=== PATIENT | male | born 1935 | race Caucasian/White ===

== ENCOUNTER 2016-09-02 13:14 | Observation (INO) | payer MEDICARE ==
[~2016-09-02] VITALS: Ht 185.4 cm; Wt 95.3 kg
[2016-09-02 13:13] VITALS: O2SAT 98
[2016-09-02 13:15] VITALS: BP_SYST 123; BP_SYST 162; BP_DIAS 101; BP_DIAS 74; PULSE 108; PULSE 113; RESP 20; TEMP 98.8; O2SAT 97
[2016-09-02] MEDS ORDERED: SODIUM CHLOR 0.9% 1000 ML INJ 1,000 ML IV ONE (13:18)
[2016-09-02 13:27] VITALS: BP 163/114; PULSE 117; RESP 20; O2SAT 97
--- NOTE | 2016-09-02 13:30 | PD ---
HPI Chief Complaint: Stroke Alert Time Seen by Provider: 13:18 Travel History International Travel<30 days: No Contact w/Intl Traveler<30days: No Traveled to known affect area: No History of Present Illness HPI The patient is a 81-year-old male who presents to the emergency department via EMS as a stroke alert. According to EMS the patient was eating lunch at [employer] earlier today with his when he suddenly developed right facial droop and dysarthria. The onset of symptoms were exactly at 12:30 according to EMS. The patient was recently diagnosed with atrial fibrillation yesterday and changed from aspirin to Eliquis, according to EMS. They do not know how many doses of Eliquis the patient has taken. The patient does have a recent history of new onset atrial fibrillation with change in medications. The patient denies any weakness of the arms or legs, denies any numbness or tingling of the arms or legs. The patient denies any company chest pain, shortness breath, nausea, vomiting, or abdominal pain. The patient was called a stroke alert in the field. PFSH Past Medical History Narrative Medical Atrial fibrillation, CAD, hypertension, hyperlipidemia, borderline diabetes Past Surgical History Narrative Surgical Tonsillectomy, cardiac catheterization with stent placement Social History Tobacco Use: No Allergies-Medications (Allergen,Severity, Reaction): Coded Allergies: No Known Allergies (Unverified , 09/02/16) Reported Meds & Prescriptions Reported Meds & Active Scripts Active Reported Eliquis (Apixaban) 5 Mg Tab 5 Mg PO BID Review of Systems Except as stated in HPI: all other systems reviewed are Neg General / Constitutional: No: Fever Eyes: No: Visual changes HENT: No: Headaches, Lightheadedness Cardiovascular: Positive: Irregular Rhythm, Tachycardia, No: Chest Pain or Discomfort Respiratory: No: Shortness of Breath Gastrointestinal: No: Nausea, Vomiting, Abdominal Pain Musculoskeletal: No: Weakness Neurologic: Positive: Focal Abnormalities, Slurred Speech, No: Headache, Change in Mentation, Paresthesia, Sensory Disturbance Physical Exam Narrative GENERAL: Awake, alert, pleasant 81-year-old male appears his stated age and is in no acute respiratory distress. SKIN: Focused skin assessment warm/dry. HEAD: Atraumatic. Normocephalic. EYES: Pupils equal and round. 3 mm bilateral and reactive. EOMs are intact. Patient is able to see fingers at a distance of 2 feet without difficulty. Visual damian appear intact. ENT: No nasal bleeding or discharge. Mucous membranes pink and moist. NECK: Trachea midline. No JVD. CARDIOVASCULAR: Irregularly irregular, heart rate 103. RESPIRATORY: No accessory muscle use. Clear to auscultation. Breath sounds equal bilaterally. GASTROINTESTINAL: Abdomen soft, non-tender, nondistended. No rebound tenderness. MUSCULOSKELETAL: No obvious deformities. No clubbing. No cyanosis. No edema. NEUROLOGICAL: Awake and alert. Patient is oriented to person and year. Mild dysarthria. Mild right facial droop. EOMs are intact and tongue is midline. Patient is able to wrinkle forehead symmetrically bilateral. Finger to nose is normal. [id number] is normal. No drift of the upper or lower extremities. Sensation is symmetric bilaterally on the face, arms, and legs. Patient follows commands without difficulty. PSYCHIATRIC: Appropriate mood and affect; insight and judgment normal. Data Data Last Documented VS Vital Signs Date Time Temp Pulse Resp B/P Pulse Ox O2 Delivery O2 Flow Rate FiO2 09/02/16 13:40 114 20 186/91 92 Room Air 09/02/16 13:28 2 09/02/16 13:15 98.8 09/02/16 13:13 21 Orders Diet Npo (09/02/16 Lunch) Activity Bed Rest (09/02/16 ) Electrocardiogram (09/02/16 ) I-Stat Creatinine (09/02/16 13:18) I-Stat Profile (09/02/16 13:18) Prothrombin Time / Inr (Pt) (09/02/16 13:18) Act Partial Throm Time (Ptt) (09/02/16 13:18) Complete Blood Count With Diff (09/02/16 13:18) Fibrinogen (09/02/16 13:18) Creatine Kinase (Cpk) (09/02/16 13:18) Troponin I (09/02/16 13:18) Ua Includes Microscopic (09/02/16 13:18) Drug Screen, Random Urine (09/02/16 13:18) Type And Screen (09/02/16 13:18) Ct Brain W/O Iv Contrast(Rout) (09/02/16 ) Chest, Single Ap (09/02/16 ) Cta Brain W Iv Contrast W 3d (09/02/16 13:18) Cta Neck W Iv Contrast W 3d (09/02/16 13:18) Consult Neurology (09/02/16 ) Blood Glucose (09/02/16 13:18) Ecg Monitoring (09/02/16 13:18) Neuro Checks Q2HX12,Q4H (09/02/16 13:18) Nursing Bedside Swallow Assess .ONCE (09/02/16 13:18) Iv Access Insert/Monitor (09/02/16 13:18) NPO (09/02/16 13:18) Oximetry (09/02/16 13:18) Oxygen Administration (09/02/16 13:18) Sodium Chlor 0.9% 1000 Ml Inj (Ns 1000 M (09/02/16 13:18) Resp Oxygen Lance C Titrat 1-4 L (09/02/16 13:18) Cath For Specimen (09/02/16 13:18) (Hub Use Only)Inp Phy Cons/Ref (09/02/16 ) Westergren Sedimentation Rate (09/02/16 13:50) Rapid Plasma Regin (Rpr) W Ttr (09/02/16 13:50) Jessica Screen (09/02/16 13:50) Thyroid Stimulating Hormone (09/02/16 13:50) Free Thyroxine (T4) (09/02/16 13:50) Vitamin B1 (Thiamine) (09/02/16 13:50) Vitamin B12 (09/02/16 13:50) Urinalysis - C+S If Indicated (09/02/16 13:50) Methylmalonic Acid (Mma) (09/02/16 13:50) Ast (Sgot) (09/02/16 13:50) Alt (Sgpt) (09/02/16 13:50) Mri Brain W&W/O Contrast (09/02/16 13:50) Echo 2d Comp W/Dopp(Routine) (09/02/16 13:50) Inside Sales Associate / Telemetry KARLOS.Q8H (09/02/16 13:50) [place] (09/02/16 13:50) Sodium Chlor 0.9% 1000 Ml Inj (Ns 1000 M (09/02/16 13:50) Lipid Profile (09/02/16 13:50) ^ Other Nursing Orders (09/02/16 13:50) Scd&Teds Bilateral/Knee High KARLOS.QSHIFT (09/02/16 13:50) Aspirin Ec (Ecotrin Ec) (09/02/16 14:00) Apixaban (Eliquis) (09/02/16 21:00) Aspirin Ec (Ecotrin Ec) (09/02/16 14:00) Aspirin Ec (Ecotrin Ec) (09/03/16 07:00) Iodixanol 320 Inj (Rad Ct) (Visipaque 32 (09/02/16 14:01) ^ Other Nursing Orders (09/02/16 14:03) Labs Laboratory Tests Test 09/02/16 13:25 White Blood Count 9.4 TH/MM3 Red Blood Count 4.77 MIL/MM3 Hemoglobin 14.1 GM/DL Bedside Hemoglobin 12.9 G/DL Hematocrit 41.4 % Bedside Hematocrit 38.0 % Mean Corpuscular Volume 86.8 FL Mean Corpuscular Hemoglobin 29.6 PG Mean Corpuscular Hemoglobin 34.1 % Concent Red Cell Distribution Width 13.5 % Platelet Count 187 TH/MM3 Mean Platelet Volume 8.0 FL Neutrophils (%) (Auto) 55.0 % Lymphocytes (%) (Auto) 30.8 % Monocytes (%) (Auto) 10.5 % Eosinophils (%) (Auto) 3.2 % Basophils (%) (Auto) 0.5 % Neutrophils # (Auto) 5.2 TH/MM3 Lymphocytes # (Auto) 2.9 TH/MM3 Monocytes # (Auto) 1.0 TH/MM3 Eosinophils # (Auto) 0.3 TH/MM3 Basophils # (Auto) 0.0 TH/MM3 CBC Comment DIFF FINAL Differential Comment Prothrombin Time 11.4 SEC Prothromb Time International 1.0 RATIO Ratio Activated Partial 24.6 SEC Thromboplast Time Fibrinogen 368 mg/dL Bedside Sodium 142 MMOL/L Bedside Potassium 3.6 MMOL/L Bedside Chloride 108 MMOL/L Bedside Blood Urea Nitrogen 20 MG/DL Bedside Creatinine 0.9 MG/DL Bedside Glucose 95 MG/DL Total Creatine Kinase 108 U/L Troponin I LESS THAN 0.02 NG/ML MDM Medical Screen Exam Complete: Yes Emergency Medical Condition: Yes Medical Record Reviewed: Yes (no previous records) Differential Diagnosis Differential diagnosis includes CVA, TIA, transient neurologic deficit, atrial fibrillation with RVR, carotid dissection, intracranial hemorrhage, subarachnoid hemorrhage, hypoglycemia. Narrative Course IV was established, labs are drawn and sent, and the patient was placed on cardiac telemetry monitoring and continuous pulse oximetry monitoring. EKG was ordered and interpreted. Stroke scale was assessed at bedside, was 2. The patient went immediately to CT for CT the brain, CTA of the head and neck. I discussed the patient with the on-call neurologist, Dr. Thompson who requests that we speak with the in regards to how many doses of Eliquis the patient has taken. We called the cell phone number that was given to us by EMS, however , it was disconnected. The did arrive, states the patient took 1 dose of Eliquis yesterday and one dose this morning. The patient is not a candidate for TPA secondary to anticoagulation with novel oral anticoagulant. The patient will be admitted, will need echocardiogram and ultrasound of the carotids. The patient was evaluated by Dr. Thompson in the emergency department , the patient will receive aspirin orally. The patient will also be monitored of his atrial fibrillation, his rate has varied between 90 and 120, no acute medications were given as the patient's blood pressure was 177/101 and we did not want to drop history of a perfusion pressure. Stroke Alert NIHSS NIH Stroke Scale Result: 2 NIHSS Time Completed: 13:21 Thrombolytic Contraindications Contraindications Comment: Patient is currently on Eliquis Procedures Interpretation(s) EKG reveals atrial fibrillation with rapid ventricular response. Rate 113. Laboratory Tests Test 09/02/16 13:25 White Blood Count 9.4 TH/MM3 Red Blood Count 4.77 MIL/MM3 Hemoglobin 14.1 GM/DL Bedside Hemoglobin 12.9 G/DL Hematocrit 41.4 % Bedside Hematocrit 38.0 % Mean Corpuscular Volume 86.8 FL Mean Corpuscular Hemoglobin 29.6 PG Mean Corpuscular Hemoglobin 34.1 % Concent Red Cell Distribution Width 13.5 % Platelet Count 187 TH/MM3 Mean Platelet Volume 8.0 FL Neutrophils (%) (Auto) 55.0 % Lymphocytes (%) (Auto) 30.8 % Monocytes (%) (Auto) 10.5 % Eosinophils (%) (Auto) 3.2 % Basophils (%) (Auto) 0.5 % Neutrophils # (Auto) 5.2 TH/MM3 Lymphocytes # (Auto) 2.9 TH/MM3 Monocytes # (Auto) 1.0 TH/MM3 Eosinophils # (Auto) 0.3 TH/MM3 Basophils # (Auto) 0.0 TH/MM3 CBC Comment DIFF FINAL Differential Comment Prothrombin Time 11.4 SEC Prothromb Time International 1.0 RATIO Ratio Activated Partial 24.6 SEC Thromboplast Time Fibrinogen 368 mg/dL Bedside Sodium 142 MMOL/L Bedside Potassium 3.6 MMOL/L Bedside Chloride 108 MMOL/L Bedside Blood Urea Nitrogen 20 MG/DL Bedside Creatinine 0.9 MG/DL Bedside Glucose 95 MG/DL Total Creatine Kinase 108 U/L Troponin I LESS THAN 0.02 NG/ML Last Impressions Head CT 09/02/16 0000 Signed Impressions: Service Date/Time: Friday, September 02, 2016 13:26 - CONCLUSION: No acute disease. Tom Linares Jr., MD Physician Communication Physician Communication The on-call medical service was paged for admission. Diagnosis Diagnosis: Primary Impression: CVA (cerebral vascular accident) Qualified Code: I63.9 - Cerebrovascular accident (CVA), unspecified mechanism Additional Impressions: Dysarthria Atrial fibrillation with RVR Admitting Physician Requests: Admit Condition: Stable Jaime Bello MD September 02, 2016 13:30
[2016-09-02 13:35] LABS: I-STAT POTASSIUM 3.6 MMOL/L (3.5-4.9); I-STAT SODIUM 142 MMOL/L (138-146)
[2016-09-02 13:37] LABS: AUTOMATED NEUTROPHIL # 5.2 TH/MM3 (1.8-7.7); BASOPHIL % 0.5 % (0.0-2.0); EOSINOPHIL # 0.3 TH/MM3 (0-0.4); EOSINOPHIL % 3.2 % (0.0-4.0); HEMATOCRIT 41.4 % (39.0-51.0); HEMO FLAGS DIFF FINAL; LYMPH % 30.8 % (9.0-44.0); LYMPHOCYTE # 2.9 TH/MM3 (1.0-4.8); MEAN CELL VOLUME 86.8 FL (80.0-100.0); MEAN CORPUSCULAR HEMOGLOBIN 29.6 PG (27.0-34.0); MEAN CORPUSCULAR HGB CONC 34.1 % (32.0-36.0); MONO % 10.5 % (0.0-8.0); PLATELET COUNT 187 TH/MM3 (150-450); RED BLOOD COUNT 4.77 MIL/MM3 (4.50-5.90); RED CELL DISTRIBUTION WIDTH 13.5 % (11.6-17.2); WHITE BLOOD COUNT 9.4 TH/MM3 (4.0-11.0)
[2016-09-02 13:40] VITALS: BP 186/91; PULSE 114; RESP 20; O2SAT 92
[2016-09-02] MEDS ORDERED: APIX2.5T PO (13:40)
--- NOTE | 2016-09-02 13:40 | RADRPT ---
EXAM DATE/TIME: 09/02/2016 13:26 [facility] COMPARISON: No previous studies available for comparison. INDICATIONS : Slurred speech and right side facial droop. RADIATION DOSE: 56.35 CTDIvol (mGy) This report was called by Dr Linares to Olaf RIVERA at 1336 MEDICAL HISTORY : not optainable SURGICAL HISTORY : not optainable ENCOUNTER: Initial ACUITY: 1 day PAIN SCALE: 0/10 LOCATION: TECHNIQUE: Multiple contiguous axial images were obtained of the head. Using automated exposure control and adj ustment of the mA and/or kV according to patient size, radiation dose was kept as low as reasonably a chievable to obtain optimal diagnostic quality images. FINDINGS: CEREBRUM: The ventricles are normal for age. No evidence of midline shift, mass lesion, hemorrhage or acute in farction. No extra-axial fluid collections are seen. POSTERIOR FOSSA: The cerebellum and brainstem are intact. The 4th ventricle is midline. The cerebellopontine angle i s unremarkable. EXTRACRANIAL: The visualized portion of the orbits is intact. SKULL: The calvaria is intact. No evidence of skull fracture. CONCLUSION: No acute disease. Tom Linares Jr., MD on September 02, 2016 at 13:32 Board Certified Radiologist. This report was verified electronically.
[2016-09-02 13:46] LABS: APTT (PATIENT) 24.6 SEC (24.3-30.1); PROTHROMBIN TIME - PATIENT 11.4 SEC (9.8-11.6)
--- NOTE | 2016-09-02 13:48 | RADRPT ---
EXAM DATE/TIME: 09/02/2016 13:38 [facility] COMPARISON: No previous studies available for comparison. INDICATIONS : Chest pain, stoke alert. MEDICAL HISTORY : None. SURGICAL HISTORY : None. ENCOUNTER: Initial ACUITY: 1 day PAIN SCORE: 0/10 LOCATION: Bilateral chest FINDINGS: Portable AP view of the chest demonstrates a normal-sized cardiac silhouette with calcification of th e aorta. Lungs are underinflated and likely atelectasis at the bases. No effusion, consolidation, or pneumothorax identified. There is symmetric biapical scar. Bones demonstrate no acute finding. CONCLUSION: Underinflation with atelectasis at the lung bases. Otherwise, no acute finding is visualized. Ponce Tinajero MD on September 02, 2016 at 13:45 Board Certified Radiologist. This report was verified electronically.
[2016-09-02] MEDS ORDERED: APIX5TAB PO (13:55)
[2016-09-02] MEDS ORDERED: ASPIRIN EC 325 MG TABEC PO ONE (14:00)
[2016-09-02] MEDS ORDERED: ASPIRIN EC 325 MG TABEC PO SCH (14:00)
[2016-09-02 14:01] LABS: CREATINE KINASE 108 U/L (39-308)
[2016-09-02] MEDS ORDERED: IODIXANOL 320 MG/ML 10 ML VIAL (for Rad CT) IV ONE (14:01)
[2016-09-02] MEDS: SODIUM CHLOR 0.9% 1000 ML INJ 1,000 ML IV SCH (14:11)
--- NOTE | 2016-09-02 14:13 | RADRPT ---
EXAM DATE/TIME: 09/02/2016 13:26 [facility] COMPARISON: No previous studies available for comparison. INDICATIONS : STROKE ALERT, Slurred speech and right side facial droop. IV CONTRAST: 48 cc Visipaque (iodixanol) IV ; Cumulative dose for multiple exams. RADIATION DOSE: 16.82 CTDIvol (mGy) ; Combined studies MEDICAL HISTORY : Not able to obtain. SURGICAL HISTORY : Not able to obtain. ENCOUNTER: Initial ACUITY: 1 day PAIN SCALE: 0/10 LOCATION: TECHNIQUE: Volumetric scanning was performed using a multi-row detector CT scanner. The data was post processed with a variety of visualization algorithms including full volume maximum intensity projection, multi -planar sliding thin slab reformation, curved planar reformation, and surface rendering techniques. Using automated exposure control and adjustment of the mA and/or kV according to patient size, radiat ion dose was kept as low as reasonably achievable to obtain optimal diagnostic quality images. FINDINGS: There is excellent visualization of the major intracranial arteries out to the second-order branch ve ssels. There is no evidence for aneurysm, vessel truncation or stenosis, and no evidence for vascula r malformation. Origin of the posterior cerebral arteries is . The terminal portion of right henrietta tebral artery is diminutive. Specifically, there is no target for catheter directed intervention. CONCLUSION: Negative Ponce Carney MD on September 02, 2016 at 13:55 Board Certified Radiologist. This report was verified electronically.
--- NOTE | 2016-09-02 14:17 | MB ---
cc: MARLENE KAM DATE OF CONSULTATION: 09/02/2016 HISTORY OF PRESENT ILLNESS An 81-year-old right-handed man with a history of borderline diabetes, cardiac stent, new onset atrial fibrillation just noted by EKG evidently yesterday or last week, and yesterday he saw a shellfish processing lab[place] and was [place] Eliquis. He took one dose last night and one dose this morning. He is not sure if it is 2.5 or 5 mg. His is going to get the pills out of the car at this time. Nevertheless, today at about 12:30 he was going to sit down at [employer] when he suddenly had difficulty talking, could not seem to use his phone, could not lift his arms up, had a right facial droop, and came into the hospital as a Stroke Alert. He seems to have improved in his speech and is functioning and no facial droop at this time. NIH Stroke Scale is 1. He has mild aphasia at this time, more of an expressive-type aphasia. ALLERGIES No known drug allergies. MEDICATIONS We know he is on Eliquis. Other medications are forthcoming. SOCIAL HISTORY Not a smoker or a drinker. Lives with his . FAMILY HISTORY Positive for cancer. Negative for seizure and stroke. REVIEW OF SYSTEMS No history of hypertension, hypercholesterolemia, CABG, renal, hepatic or pulmonary disease, thyroid disease, lupus, ulcer cancer, seizure or stroke. PHYSICAL EXAMINATION VITAL SIGNS: 114, afebrile, 20, 186/91 to 162/101. NECK: There are no carotid bruits. HEART: Regular rhythm. I do not detect a murmur. NEUROLOGIC: Pupils are equal. Visual damian are full. Extraocular intact without nystagmus. Face is symmetrical with normal station. Tongue is midline. There is no drift. He has normal strength in upper and lower extremities bilaterally. Toes are downgoing bilaterally. DTRs trace throughout. Pinprick is intact throughout. He is not ataxic on [id number]. He can follow some commands. He is able to show me his left thumb. He has occasional paraphasic errors. Repetition, he could do simple things but not more complex. Simple math he got incorrect. He was able to name my glasses and my lens, but had a little difficulty with the lens but then was able to repeat it normally. LABORATORY CBC is normal. Basic metabolic profile is normal. CPK and troponin are pending. Coags are normal. IMAGING DATA He had a CAT scan of the brain which is normal. I reviewed those films. He had a CT of the neck which appears normal. Some mild carotid disease bilaterally. CTA [place]. I thought preliminary was normal, although await the official results. There may be a signal drop out in the right intracranial carotid in the siphon region just on one slice versus an artifact. Chest x-ray is pending. TELEMETRY He is in atrial fibrillation on the telemetry. IMPRESSION AND RECOMMENDATIONS Atrial fibrillation with left MCA stroke. He is on Eliquis and as such unable to give TPA. We will see what the CTA shows. It looks like he just has some mild deficit at this time with the NIH Stroke Scale being 1 at this time, would not give TPA. For now will add on a baby aspirin and continue on the Eliquis for now. It appears that he was on 5 mg b.i.d. but just had two doses, so may not have taken full effect, although theoretically it should on him. Will also check an echo an MRI of the brain and the usual stroke treatment. MD JEMAL Sutherland/YOSELYN /1:51 PM /2:04 PM
--- NOTE | 2016-09-02 14:18 | RADRPT ---
EXAM DATE/TIME: 09/02/2016 13:26 [facility] COMPARISON: No previous studies available for comparison. INDICATIONS : STROKE ALERT, slurred speech and right side facial droop. IV CONTRAST: 48 cc Visipaque (iodixanol) IV ; Cumulative dose for multiple exams. RADIATION DOSE: 16.82 CTDIvol (mGy) ; Combined studies MEDICAL HISTORY : Not able to obtain. SURGICAL HISTORY : Not able to obtain. ENCOUNTER: Initial ACUITY: 1 day PAIN SCALE: 0/10 LOCATION: Elevated flow velocities and ICA/CCA ratios have been found to correlate with increased degrees of vessel stenosis, calculated as percentage of diameter relative to a normal segment of distal ICA/CCA. TECHNIQUE: Volumetric scanning was performed using a multirow detector CT scanner. The data was post processed with a variety of visualization algorithms including full-volume maximum intensity projection, multip lanar sliding thin-slab reformation, curved-planar reformation, and surface-rendering techniques. Us ing automated exposure control and adjustment of the mA and/or kV according to patient size, radiatio n dose was kept as low as reasonably achievable to obtain optimal diagnostic quality images. FINDINGS: AORTIC ARCH: The left artery originates directly from the arch. The origins of the great vessels are widely patent . RIGHT CAROTID: The common carotid is widely patent. There is dense atherosclerotic plaquing at the bifurcation. This results in moderate stenosis in the origin of the right internal carotid this is estimated to be in the range of 30% by NASCET criteria. The more cephalad portion of the intracarotid circulation is wid estela patent. LEFT CAROTID: The common carotid is widely patent. There is calcified atherosclerotic plaque at the bifurcation thi s results in only minimal stenosis of the origin of the left internal carotid. This is estimated to b e in the range of 5-10% by NASCET criteria. VERTEBRALS: Both vertebral arteries are patent. The left vertebral originates directly from the arch and is the d ominant blood supply to the basilar. The right vertebral is quite small in size. CONCLUSION: 1. Right carotid: 2. Advanced atherosclerotic plaquing at the bifurcation with mild to moderate stenosis estimated to b e in the range of 30% by NASCET criteria. 3. 4. Left carotid: 5. Atherosclerotic plaquing at the bifurcation with only minimal stenosis of the origin of the left i nternal carotid. 6. The left vertebral originates directly from the arch. Nato Church MD on September 02, 2016 at 14:12 Board Certified Radiologist. This report was verified electronically.
[2016-09-02] MEDS ORDERED: OMEG100037 PO (14:27)
[2016-09-02] MEDS ORDERED: TELM1TAB PO (14:27)
[2016-09-02] MEDS ORDERED: ATOR40TA16 PO (14:27)
[2016-09-02] MEDS ORDERED: MULT1TAB84 PO (14:27)
[2016-09-02] MEDS ORDERED: OXYB5TAB PO (14:27)
[2016-09-02] MEDS ORDERED: CETI10 PO (14:27)
[2016-09-02] MEDS ORDERED: VITA100T15 PO (14:27)
[2016-09-02] MEDS ORDERED: GABA300C5 PO (14:27)
[2016-09-02 14:41] LABS: AMPHETAMINE, URINE NEG (NEG); BARBITURATES, URINE NEG (NEG); COCAINE, URINE NEG (NEG)
[2016-09-02] MEDS ORDERED: NALOXONE HCL 0.4 MG/ML AMP IV PRN (15:00)
[2016-09-02] MEDS ORDERED: ONDANSETRON HCL 4 MG/2 ML VIAL IVP PRN (15:00)
[2016-09-02] MEDS ORDERED: SODIUM CHLORIDE 0.9% FLUSH 10 ML FLUSH IV FLUSH PRN (15:00)
[2016-09-02] MEDS ORDERED: ACETAMINOPHEN 325 MG TAB PO PRN (15:00)
--- NOTE | 2016-09-02 15:28 | HHI.HP ---
[facility] Service [facility] Primary Care Physician Non-Staff Admission Diagnosis CVA, dysarthria, atrial fibrillation with RVR Diagnoses: (1) Dysarthria Diagnosis: Principal (2) CVA (cerebral vascular accident) Diagnosis: Principal (3) Atrial fibrillation with RVR Diagnosis: Principal (4) Hypertensive urgency Diagnosis: Principal (5) Neuropathy Diagnosis: Secondary (6) Dyslipidemia Diagnosis: Secondary (7) DM2 (diabetes mellitus, type 2) Diagnosis: Secondary Travel History International Travel<30 Days: No Contact w/Intl Traveler <30 Da: No Traveled to Known Affected Are: No History of Present Illness Mr. Pearce is an 81 year old male. He is here today due to an acute onset of dysarthria and right facial droop. He has newly diagnosed A-fib and started elequis two days ago. There is no prior history of CVA or TIA for him. He has a family history of CVA in both parents. Diabetes is present in his family also and he and both of his parents have diabetes. His father had CAD. When seen his symptoms have resolved. He feels at baseline now, but is feeling a bit anxious about what has occured. Mild tachycardia is present and may be from the anxiety vs. mild A-fib RVR. HTN is present and also could be related to anxiety, but may also be related to a cerebrovascular event. Imaging thus far shows no pathological stenosis at the carotid arteries and no clot in that location. No evidence of CVA or Aneurysms on CT imaging including CTA and CT. MRI is pending and an echocardiogram is pending. No reports of nausea/vomiting/ diarrhea and no chest pain. He does have a mild headache. Review of Systems Constitutional: DENIES: Fever, Chills Eyes: DENIES: Blurred vision, Diplopia Ears, nose, mouth, throat: DENIES: Hearing loss, Vertigo Respiratory: DENIES: Cough, Wheezing, Shortness of breath Cardiovascular: DENIES: Chest pain, Syncope Gastrointestinal: DENIES: Abdominal pain, Black stools, Bloody stools Musculoskeletal: DENIES: Joint pain, Muscle aches, Stiffness Integumentary: DENIES: Abnormal pigmentation Hematologic/lymphatic: DENIES: Bruising Immunologic/allergic: DENIES: Eczema Psychiatric: COMPLAINS OF: Anxiety Headache Past Family Social History Allergies: Coded Allergies: No Known Allergies (Unverified , 09/02/16) Physical Exam Vital Signs Vital Signs Date Time Temp Pulse Resp B/P Pulse Ox O2 Delivery O2 Flow Rate FiO2 09/02/16 13:40 114 20 186/91 92 Room Air 09/02/16 13:28 95 Nasal Cannula 2 09/02/16 13:27 117 20 163/114 97 Room Air 09/02/16 13:15 98.8 113 20 162/101 97 09/02/16 13:13 98 21 09/02/16 13:13 98 21 Physical Exam GENERAL: NAD, A&Ox3 SKIN: Warm and dry. HEAD: Normocephalic. EYES: No scleral icterus. No injection or drainage. NECK: Supple, trachea midline. No JVD or lymphadenopathy. CARDIOVASCULAR: Regular rate and rhythm without murmurs, gallops, or rubs. RESPIRATORY: Breath sounds equal bilaterally. No accessory muscle use. GASTROINTESTINAL: Abdomen soft, non-tender, nondistended. MUSCULOSKELETAL: No cyanosis, or edema. NEURO: No focal neurodeficits, strength is bilaterally symmetrical, no notable facial droop. Speech pattern within normal limits (southern accent). Laboratory Laboratory Tests Test 09/02/16 09/02/16 09/02/16 13:25 13:48 14:09 White Blood Count 9.4 Red Blood Count 4.77 Hemoglobin 14.1 Bedside Hemoglobin 12.9 Hematocrit 41.4 Bedside Hematocrit 38.0 Mean Corpuscular Volume 86.8 Mean Corpuscular Hemoglobin 29.6 Mean Corpuscular Hemoglobin 34.1 Concent Red Cell Distribution Width 13.5 Platelet Count 187 Mean Platelet Volume 8.0 Neutrophils (%) (Auto) 55.0 Lymphocytes (%) (Auto) 30.8 Monocytes (%) (Auto) 10.5 Eosinophils (%) (Auto) 3.2 Basophils (%) (Auto) 0.5 Neutrophils # (Auto) 5.2 Lymphocytes # (Auto) 2.9 Monocytes # (Auto) 1.0 Eosinophils # (Auto) 0.3 Basophils # (Auto) 0.0 CBC Comment DIFF FINAL Differential Comment Prothrombin Time 11.4 Prothromb Time International 1.0 Ratio Activated Partial 24.6 Thromboplast Time Fibrinogen 368 Bedside Sodium 142 Bedside Potassium 3.6 Bedside Chloride 108 Bedside Blood Urea Nitrogen 20 Bedside Creatinine 0.9 Bedside Glucose 95 Total Creatine Kinase 108 Troponin I LESS THAN 0.02 Blood Type A POSITIVE Antibody Screen NEGATIVE Blood Bank Comment Urine Opiates Screen NEG Urine Barbiturates Screen NEG Urine Amphetamines Screen NEG Urine Benzodiazepines Screen NEG Urine Cocaine Screen NEG Urine Cannabinoids Screen NEG Result Diagram: 09/02/16 1325 Imaging Last Impressions Neck CTA 09/02/16 1318 Signed Impressions: Service Date/Time: Friday, September 02, 2016 13:26 - CONCLUSION: 1. Right carotid : 2. Advanced atherosclerotic plaquing at the bifurcation with mild to moderate stenosis estimated to be in the range of 30%% by NASCET criteria. 3. 4. Left carotid: 5. Atherosclerotic plaquing at the bifurcation with only minimal stenosis of the origin of the left internal carotid. 6. The left vertebral originates directly from the arch. Nato Church MD Head CTA 09/02/16 1318 Signed Impressions: Service Date/Time: Friday, September 02, 2016 13:26 - CONCLUSION: Negative Ponce Carney MD Head CT 09/02/16 0000 Signed Impressions: Service Date/Time: Friday, September 02, 2016 13:26 - CONCLUSION: No acute disease. Tom Linares Jr., MD Chest X-Ray 09/02/16 0000 Signed Impressions: Service Date/Time: Friday, September 02, 2016 13:38 - CONCLUSION: Underinflation with atelectasis at the lung bases. Otherwise, no acute finding is visualized. Ponce Tinajero MD Assessment and Plan Problem List: (1) DM2 (diabetes mellitus, type 2) ICD Code: E11.9 Status: Acute (2) Dyslipidemia ICD Code: E78.5 Status: Acute (3) Neuropathy ICD Code: G62.9 Status: Acute (4) Hypertensive urgency ICD Code: I16.0 Status: Acute (5) Atrial fibrillation with RVR ICD Code: I48.91 Status: Acute (6) CVA (cerebral vascular accident) ICD Code: I63.9 Status: Acute (7) Dysarthria ICD Code: R47.1 Status: Acute Assessment and Plan TIA vs CVA Dysarthria (resolved) Facial Droop of Right (resolved) MRI pending Echocardiogram pending CTA of neck shows no carotid stenosis or thrombus CTA of brain shows no anneurysms CT of brain shows no bleed or tumors Chest x-ray is clean/clear Neurology consulted Follow Q4hrs with neurochecks Daily aspirin Continue eliquis A-fib RVR Anxiety vs. 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
[2016-09-02] MEDS ORDERED: GLUCAGON 1 MG/ML VIAL OTHER PRN (15:30)
[2016-09-02] MEDS ORDERED: DEXTROSE 50% IN WATER 50 ML VIAL(D50) IV PUSH PRN (15:30)
[2016-09-02 15:36] LABS: FREE T4 1.11 NG/DL (0.76-1.46); HDL CHOLESTEROL 42.8 MG/DL (40.0-60.0)
[2016-09-02] MEDS: INSULIN ASPART SUPPLEMENTAL SCALE SQ SCH ×2 (16:00→20:42)
[2016-09-02] MEDS ORDERED: GADODIAMIDE PF 287 MG/ML 20 ML VIAL (for RAD MRI) IV ONE ×2 (16:28→16:34)
[2016-09-02 16:40] VITALS: BP 130/80; PULSE 98; RESP 20; TEMP 97.6; O2SAT 96
--- NOTE | 2016-09-02 16:42 | RADRPT ---
EXAM DATE/TIME: 09/02/2016 16:04 [place] COMPARISON: No previous studies available for comparison. INDICATIONS : Aphasia. CONTRAST: 20 cc Omniscan (gadodiamide) IV MEDICAL HISTORY : Afib SURGICAL HISTORY : Coronary artery stent. ENCOUNTER: Initial ACUITY: 1 day PAIN SCORE: 0/10 LOCATION: head TECHNIQUE: Multiplanar, multisequence MRI of the brain was performed both prior to and following the administrat ion of paramagnetic contrast. FINDINGS: There is small area of cortical and subcortical diffusion restriction in the left temporoparietal reg ion. No evidence of significant signal abnormality on other sequences. There is no evidence of mass o r hemorrhage. There is no abnormal parenchymal contrast enhancement. Normal enhancement is present in tracranial vascular structures. The extracranial structures are benign and intact. CONCLUSION: Early subacute infarction in the left temporoparietal region Ponce Carney MD on September 02, 2016 at 16:37 Board Certified Radiologist. This report was verified electronically.
--- NOTE | 2016-09-02 19:01 | EC ---
Study Study Date:09/02/2016 STUDY CONCLUSIONS SUMMARY LEFT VENTRICLE: The cavity size was normal. Systolic function was normal. The estimated ejection fraction was in the range of 55% to 60%. Wall motion was normal; there were no regional wall motion abnormalities. The study is not technically sufficient to allow evaluation of LV diastolic function. If LV function is below 40, please consider prescribing an ACEI or ARB or document rationale for non-use. PROCEDURE DATA STUDY STATUS: Elective. Procedure: Transthoracic echocardiography. Image quality was good. Scanning was performed from the parasternal, apical, and subcostal acoustic windows. Study completion: The patient tolerated the procedure well. Transthoracic echocardiography. M-mode, complete 2D, complete spectral Doppler, and color Doppler. Patient status: Inpatient. CARDIAC ANATOMY LEFT VENTRICLE: The cavity size was normal. Systolic function was normal. The estimated ejection fraction was in the range of 55% to 60%. Wall motion was normal; there were no regional wall motion abnormalities. The study is not technically sufficient to allow evaluation of LV diastolic function. AORTIC VALVE: Trileaflet; moderately thickened leaflets. Doppler: There was no stenosis. No significant regurgitation. Peak gradient: 14mm Hg (S). MITRAL VALVE: Mildly calcified leaflets, anterior greater than posterior. Doppler: There was no evidence for stenosis. No significant regurgitation. Peak gradient: 4mm Hg (D). LEFT ATRIUM: The atrium was normal in size. RIGHT VENTRICLE: The cavity size was normal. PULMONIC VALVE: Not visualized. TRICUSPID VALVE: The valve appears to be grossly normal. Doppler: There was no evidence for stenosis. Trace regurgitation. PERICARDIUM: There was no pericardial effusion. BASIC MEASUREMENTS ADULT Normal Left ventricle LV internal dimension, ED, chordal level, 43.7 mm 43-52 PLAX LV internal dimension, ES, chordal level, 34.1 mm 23-38 PLAX Fractional shortening, chordal level, PLAX *22 % >29 LV posterior wall thickness, ED 6.77 mm IVS/LVPW ratio, ED *1.62 <1.3 Ventricular septum Septal thickness, ED 11 mm Aortic valve Leaflet separation 16 mm 15-26 Left atrium Anterior-posterior dimension 32 mm Right ventricle RV internal dimension, ED, PLAX 24.4 mm 19-38 BASIC MEASUREMENTS ADULT Normal Aortic valve Leaflet separation 16 mm 15-26 Aorta Root diameter, ED 30 mm 20-37 DOPPLER MEASUREMENTS ADULT Normal Aortic valve Peak velocity, S 188 cm/s Peak gradient, S 14 mm Hg Mitral valve Peak E-wave velocity 96.3 cm/s Peak gradient, D 4 mm Hg Tricuspid valve Regurgitant peak velocity 252 cm/s Peak RV-RA gradient, S 25 mm Hg Maximal regurgitant velocity 252 cm/s LEGEND: Mean values are shown as u=mean value. Asterisk (*) lemus values outside specified normal range. Prepared and signed by Frantz Forman [id number]
[2016-09-02 20:00] VITALS: BP 135/77; PULSE 84; PULSE 93; RESP 17; TEMP 97.9; O2SAT 96
[2016-09-02] MEDS: APIXABAN 5 MG TABLET PO SCH (20:43)
[2016-09-02] MEDS: SODIUM CHLORIDE 0.9% FLUSH 10 ML FLUSH IV FLUSH SCH (20:43)
[2016-09-02] MEDS ORDERED: ATORVASTATIN 40 MG TAB PO SCH (21:00)
[2016-09-02] MEDS ORDERED: APIXABAN 5 MG TABLET PO SCH (21:00)
[2016-09-03] VITALS: BP 118/71; PULSE 78; RESP 18; TEMP 98.6; O2SAT 97
[2016-09-03] MEDS: SODIUM CHLOR 0.9% 1000 ML INJ 1,000 ML IV SCH (03:10)
[2016-09-03 04:00] VITALS: BP 133/72; PULSE 87; RESP 20; TEMP 98; O2SAT 98
[2016-09-03] MEDS: INSULIN ASPART SUPPLEMENTAL SCALE SQ SCH ×2 (06:08→12:31)
[2016-09-03 06:58] LABS: AUTOMATED NEUTROPHIL # 4.9 TH/MM3 (1.8-7.7); BASOPHIL # 0.1 TH/MM3 (0-0.2); BASOPHIL % 0.7 % (0.0-2.0); EOSINOPHIL # 0.3 TH/MM3 (0-0.4); EOSINOPHIL % 3.8 % (0.0-4.0); HEMATOCRIT 42.4 % (39.0-51.0); HEMO FLAGS DIFF FINAL; LYMPH % 20.9 % (9.0-44.0); LYMPHOCYTE # 1.6 TH/MM3 (1.0-4.8); MEAN CELL VOLUME 86.8 FL (80.0-100.0); MEAN CORPUSCULAR HEMOGLOBIN 29.7 PG (27.0-34.0); MEAN CORPUSCULAR HGB CONC 34.2 % (32.0-36.0); MONO % 10.2 % (0.0-8.0); NEUT % 64.4 % (16.0-70.0); PLATELET COUNT 199 TH/MM3 (150-450); RED BLOOD COUNT 4.89 MIL/MM3 (4.50-5.90); RED CELL DISTRIBUTION WIDTH 13.7 % (11.6-17.2); WHITE BLOOD COUNT 7.7 TH/MM3 (4.0-11.0)
[2016-09-03] MEDS ORDERED: ASPIRIN EC 81 MG TABEC PO SCH (07:00)
[2016-09-03 07:33] LABS: ALT (GPT) 33 U/L (12-78); ANION GAP 8 MEQ/L (5-15); AST (GOT) 24 U/L (15-37); BICARBONATE 26.2 MEQ/L (21.0-32.0); BLOOD UREA NITROGEN 18 MG/DL (7-18); CHLORIDE 107 MEQ/L (98-107); GLOMERULAR FILTRATION RATE 72 ML/MIN (>89); POTASSIUM 4.1 MEQ/L (3.5-5.1); SODIUM (NA) 141 MEQ/L (136-145)
[2016-09-03 07:35] LABS: ALKALINE PHOSPHATASE 51 U/L (45-117); HDL CHOLESTEROL 41.4 MG/DL (40.0-60.0); LDL CHOLESTEROL 46 MG/DL (0-99); TOTAL BILIRUBIN ADULT 0.8 MG/DL (0.2-1.0)
[2016-09-03 08:01] VITALS: BP 138/94; PULSE 89; RESP 19; TEMP 98; O2SAT 94
[2016-09-03] MEDS: APIXABAN 5 MG TABLET PO SCH (08:53)
[2016-09-03] MEDS: SODIUM CHLORIDE 0.9% FLUSH 10 ML FLUSH IV FLUSH SCH (08:54)
[2016-09-03] MEDS ORDERED: GABAPENTIN 300 MG CAP PO SCH (09:00)
[2016-09-03] MEDS ORDERED: MULTIVITAMINS/MINERALS THERAPEUTIC TAB PO SCH (09:00)
[2016-09-03] MEDS ORDERED: TOLTERODINE TARTRATE 2 MG CAP LA PO SCH (09:00)
[2016-09-03] MEDS ORDERED: CETIRIZINE HCL 10 MG TAB PO SCH (09:00)
[2016-09-03] MEDS ORDERED: LOSARTAN 50 MG TAB PO SCH (09:00)
[2016-09-03] MEDS ORDERED: NON-FORMULARY DRUG (Omega-3 Fatty Acids (Fish Oil 1000 mg) 1 CAP) PO SCH (09:00)
--- NOTE | 2016-09-03 10:26 | EKG ---
Date Performed: 09/02/2016 Time Performed: 13:42:46 PTAGE: 81 years EKG: ATRIAL FIBRILLATION WITH RAPID VENTRICULAR RESPONSE ABNORMAL RHYTHM ECG NO PREVIOUS TRACING DOCTOR: Divine Payne Interpretating Date/Time 09/03/2016 10:25:20
--- NOTE | 2016-09-03 10:37 | HHI.PR ---
Subjective Remarks afib Objective Vital Signs Date Time Temp Pulse Resp B/P Pulse Ox O2 Delivery O2 Flow Rate FiO2 09/03/16 08:01 98.0 89 19 138/94 94 09/03/16 04:00 98.0 87 20 133/72 98 09/03/16 00:00 98.6 78 18 118/71 97 09/02/16 20:00 93 09/02/16 20:00 97.9 84 17 135/77 96 09/02/16 16:40 97.6 98 20 130/80 96 09/02/16 13:40 114 20 186/91 92 Room Air 09/02/16 13:28 95 Nasal Cannula 2 09/02/16 13:27 117 20 163/114 97 Room Air 09/02/16 13:15 98.8 113 20 162/101 97 09/02/16 13:13 98 21 09/02/16 13:13 98 21 I/O 09/02/16 09/02/16 09/02/16 09/03/16 09/03/16 09/03/16 07:00 15:00 23:00 07:00 15:00 23:00 Intake Total 240 ml 240 ml Output Total 650 ml 400 ml Balance -650 ml -160 ml 240 ml Intake Oral 240 ml 240 ml Output Urine Total 650 ml 400 ml # Voids 2 4 2 # Bowel Movements 0 Result Diagram: 09/03/16 0636 09/03/16 0636 Other Results ctax2 nl echo nl mri small left posterior mca cva Objective Remarks speech better but not nl some paraphasic errors 09/02 t/o vff Assessment and Plan Assessment and Plan imp afib left mca cva after two doses eliquis i dw him and at this point not sure he actually failed eliquis as only 2 doses and could have had clot already there b4 started eliquis asa 81 plus eliquis could change to xarelto but they elect not to ok dc later today if steady on feet dc asa one month Pepe Thompson MD September 03, 2016 10:37
[2016-09-03 10:40] VITALS: O2SAT 96
[2016-09-03 12:01] VITALS: BP 124/65; PULSE 65; RESP 19; TEMP 98; O2SAT 97
[2016-09-03] MEDS ORDERED: ASPI81TA11 PO (14:35)
--- NOTE | 2016-09-03 14:41 | HHI.DS ---
Discharge Summary Admission Date September 02, 2016 at 14:31 Discharge Date: September 03, 2016 Admitting Diagnosis CVA, dysarthria, atrial fibrillation with RVR (1) DM2 (diabetes mellitus, type 2) ICD Code: E11.9 (2) Dyslipidemia ICD Code: E78.5 Diagnosis: Secondary (3) Neuropathy ICD Code: G62.9 Diagnosis: Secondary (4) Hypertensive urgency ICD Code: I16.0 Diagnosis: Secondary (5) Atrial fibrillation with RVR ICD Code: I48.91 Diagnosis: Secondary (6) CVA (cerebral vascular accident) ICD Code: I63.9 Diagnosis: Principal (7) Dysarthria ICD Code: R47.1 Diagnosis: Principal Procedures none Brief History - From Admission Mr. Pearce is an 81 year old male. He is here today due to an acute onset of dysarthria and right facial droop. He has newly diagnosed A-fib and started elequis two days ago. There is no prior history of CVA or TIA for him. He has a family history of CVA in both parents. Diabetes is present in his family also and he and both of his parents have diabetes. His father had CAD. When seen his symptoms have resolved. He feels at baseline now, but is feeling a bit anxious about what has occured. Mild tachycardia is present and may be from the anxiety vs. mild A-fib RVR. HTN is present and also could be related to anxiety, but may also be related to a cerebrovascular event. Imaging thus far shows no pathological stenosis at the carotid arteries and no clot in that location. No evidence of CVA or Aneurysms on CT imaging including CTA and CT. MRI is pending and an echocardiogram is pending. No reports of nausea/vomiting/ diarrhea and no chest pain. He does have a mild headache. CBC/BMP: 09/03/16 0636 09/03/16 0636 Significant Findings Laboratory Tests Test 09/02/16 09/03/16 13:25 06:36 Monocytes (%) (Auto) 10.5 % 10.2 % (0.0-8.0) (0.0-8.0) Monocytes # (Auto) 1.0 TH/MM3 (0-0.9) Troponin I LESS THAN 0.02 NG/ML (0.02-0.05) Cholesterol Level 99 MG/DL 108 MG/DL (120-200) (120-200) Estimat Glomerular Filtration 72 ML/MIN (>89) Rate Random Glucose 110 MG/DL (74-106) Calcium Level 8.4 MG/DL (8.5-10.1) Total Protein 6.3 GM/DL (6.4-8.2) Imaging Last Impressions Brain MRI 09/02/16 1350 Signed Impressions: Service Date/Time: Friday, September 02, 2016 16:04 - CONCLUSION: Early subacute infarction in the left temporoparietal region Ponce Carney MD Neck CTA 09/02/168 Signed Impressions: Service Date/Time: Friday, September 02, 2016 13:26 - CONCLUSION: 1. Right carotid : 2. Advanced atherosclerotic plaquing at the bifurcation with mild to moderate stenosis estimated to be in the range of 30%% by NASCET criteria. 3. 4. Left carotid: 5. Atherosclerotic plaquing at the bifurcation with only minimal stenosis of the origin of the left internal carotid. 6. The left vertebral originates directly from the arch. Nato Church MD Head CTA 09/02/168 Signed Impressions: Service Date/Time: Friday, September 02, 2016 13:26 - CONCLUSION: Negative Ponce Carney MD Head CT 09/02/16 0000 Signed Impressions: Service Date/Time: Friday, September 02, 2016 13:26 - CONCLUSION: No acute disease. Tom Linares Jr., MD Chest X-Ray 09/02/16 0000 Signed Impressions: Service Date/Time: Friday, September 02, 2016 13:38 - CONCLUSION: Underinflation with atelectasis at the lung bases. Otherwise, no acute finding is visualized. Ponce Tinajero MD PE at Discharge GENERAL: NAD, A&Ox3 SKIN: Warm and dry. HEAD: Normocephalic. EYES: No scleral icterus. No injection or drainage. NECK: Supple, trachea midline. No JVD or lymphadenopathy. CARDIOVASCULAR: Regular rate and rhythm without murmurs, gallops, or rubs. RESPIRATORY: Breath sounds equal bilaterally. No accessory muscle use. GASTROINTESTINAL: Abdomen soft, non-tender, nondistended. MUSCULOSKELETAL: No cyanosis, or edema. Neuro: No focal deficits. Mild dysarthria. Hospital Course Mr. Pearce is an 81 year old male. He was admitted due to an acute onset of right facial droop and dysarthria. Symptoms quickly resoolved other than a mild resitual dysarthria. This symptom is all that persists today. He is able to communicate fully. MRI shows a left temporoparietal infarct which is new. Neurology has recommended aspirin for one month and resumption of his statin and elequis. He is cleared by neurology for discharge to home today and is medically stable and clear for discharge today. Pt Condition on Discharge: Stable Discharge Disposition: Discharge Home Discharge Time: <= 30 minutes Discharge Instructions DIET: Follow Instructions for: As Tolerated, No Restrictions Activities you can perform: Regular-No Restrictions Follow up Referrals: PCP Follow-up - 1 Week New Medications: Aspirin DR (Aspirin EC) 81 Mg Tabdr 81 MG PO DAILY@07 Blood Clot Prevention #30 TAB Continued Medications: Apixaban (Eliquis) 5 Mg Tab 5 MG PO BID Blood Clot Prevention #60 Ref 0 TAB Atorvastatin (Atorvastatin) 40 Mg Tab 40 MG PO HS Cholesterol Management #30 Ref 0 TAB Cetirizine (Cetirizine) 10 Mg Tab 10 MG PO DAILY Allergies Ref 0 TAB Cyanocobalamin (Vitamin B12) 100 Mcg Tab Unknown Dose PO DAILY #1 BOTTLE Gabapentin (Gabapentin) 300 Mg Cap 300 MG PO DAILY #30 Ref 0 CAP Multiple Vitamins W/ Minerals (Multivitamin Adults) 1 Tab 1 TAB PO DAILY Nutritional Supplement Ref 0 TAB [place]-3 Fatty Acids (Fish Oil 1000 mg) 1 Cap Cap 1 CAP PO DAILY Oxybutynin ER 24 HR (Oxybutynin ER 24 HR) 5 Mg Tab 5 MG PO DAILY Overactive Bladder Ref 0 TAB Telmisartan (Telmisartan) 40 Mg Tab 40 MG PO DAILY Blood Pressure Management #30 Ref 0 TAB Nato Bates MD September 03, 2016 14:41
[2016-09-05 14:11] LABS: RAPID PLASMA REAGIN SCREEN NON-REACTIVE (NON-REACTVE)
[2016-09-05 14:46] LABS: ANA SCREEN NEG (NEG)
== END 2016-09-03 15:50 | disposition home or self-care (01) ==
LOC: NEPE 13:14 → NEDA 14:31 → INTOOBSV 14:31 → N04B 16:35
PROVIDERS: ADMIT Hospitalist; ATTEND Hospitalist
DX: I63.8 Other cerebral infarction (principal); E11.40 Type 2 diabetes mellitus with diabetic neuropathy, unspecified; I48.91 Unspecified atrial fibrillation; E11.9 Type 2 diabetes mellitus without complications; R29.810 Facial weakness; E78.5 Hyperlipidemia, unspecified; I16.0 Hypertensive urgency; R47.1 Dysarthria and anarthria; Z82.3 Family history of stroke; Z83.3 Family history of diabetes mellitus; Z82.49 Family history of ischemic heart disease and other diseases of the circulatory system; Z79.02 Long term (current) use of antithrombotics/antiplatelets
CPT/HCPCS: 70450; 70496; 70498; 70553; 71010; 80053; 80061; 80307; 82435; 82550; 82565; 82607; 82947; 82948; 83921; 84132; 84295; 84425; 84439; 84443; 84450; 84460; 84484; 84520; 85025; 85384; 85610; 85652; 85730; 86038; 86592; 86850; 86900; 86901; 93005; 93306; 96360; 99285; A9579; G0378; J1815; J7030; P9612; Q9967